=== PATIENT | male | born 1935 | race Caucasian/White ===

== ENCOUNTER 2019-10-23 00:37 | Inpatient (IN) | payer MEDICARE, OTHER ==
[~2019-10-23] VITALS: Ht 163.8 cm; Wt 63.2 kg
[~2019-10-23 00:37] MED LIST: CLOP75TA PO; LEVO750T26 PO; METF500T17 PO; PRED50TA PO; SIMV40TA20 PO; TAMS0.4C2 PO
--- NOTE | 2019-10-23 00:45 | NUR ---
THIS IS A 84Y M BIB EMS FROM [place]. PT HAD WORSENING BACK PAIN TODAY. HX OF CA SCAN TODAY SHOWED METS TO SPINE. PT CONNECTED TO ALL MONITORING, VSS, NADN. PT ABLE TO SPEAK IN FULL SENTENCES. PT STS PAIN IS PRESENT/ UNBEARABLE WHEN ATTEMPTING TO AMB
--- NOTE | 2019-10-23 00:46 | NUR ---
MD AT BEDSIDE TO ASSESS PT
--- NOTE | 2019-10-23 01:41 | NUR ---
RESTING QUIETLY, AWAIT ROOM ASSIGNMENT
--- NOTE | 2019-10-23 01:56 | NUR ---
PT RESTING ON GURNEY WITH WAFFLE MATTRESS IN PLACE, [place].
[2019-10-23 03:21] VITALS: BP 154/74
[2019-10-23] MEDS ORDERED: ACETAMINOPHEN 325 MG TABLET PO PRN (03:30)
[2019-10-23] MEDS ORDERED: hydrALAzine 20 MG/ML, 1ML IVPush PRN (03:30)
[2019-10-23] MEDS ORDERED: ONDANSETRON 2MG/ML, 2ML IVPush PRN (03:30)
[2019-10-23] MEDS ORDERED: POLYETHYLENE GLYCOL 17 GM PACKET PO PRN (03:30)
[2019-10-23] MEDS ORDERED: TEMAZEPAM 15 MG CAPSULE PO ONE (04:00)
[2019-10-23 04:19] LABS: MICROSCOPIC NOT IND
[2019-10-23 04:21] LABS: CULTURE INDICATED? NO
[2019-10-23] MEDS ORDERED: ALBUTEROL SULFATE 2.5 MG/3 ML NPPB PRN (04:30)
[2019-10-23] MEDS ORDERED: OXYcodone IR 5MG TABLET PO PRN (07:30)
[2019-10-23] MEDS ORDERED: MORPHINE SULFATE 4 MG/ML, 1ML IVPush PRN (07:30)
[2019-10-23 08:25] VITALS: BP 127/71
[2019-10-23] MEDS: LIDODERM 5% PATCH TD SCH (09:54)
[2019-10-23 10:12] LABS: BASOPHILS # (AUTO) 0.02 x10^3/uL (0-0.1); BASOPHILS % (AUTO) 1 % (0-1); EOSINOPHILS # (AUTO) 0.22 x10^3/uL (0-0.4); EOSINOPHILS % (AUTO) 6 % (1-7); LYMPHOCYTES # (AUTO) 0.81 x10^3/uL (1-3.4); LYMPHOCYTES % (AUTO) 22 % (22-44); MD NO; MEAN CORPUSCULAR HEMOGLOBIN 30.2 pg (27.5-34.5); MEAN CORPUSCULAR HGB CONC 32.7 g/dL (33.2-36.2); MEAN CORPUSCULAR VOLUME 92.5 fL (81-97); MEAN PLATELET VOLUME 6.6 fL (7.4-10.4); MONOCYTES # (AUTO) 0.38 x10^3/uL (0.2-0.8); MONOCYTES % (AUTO) 10 % (2-9); NEUTROPHILS % (AUTO) 61 % (42-75); PLATELET COUNT 188 x10^3/uL (130-400); RED BLOOD COUNT 3.83 x10^6/uL (4.38-5.82); RED CELL DISTRIBUTION WIDTH 14.7 % (9.4-14.8)
[2019-10-23 10:19] LABS: ANION GAP 4 mmol/L (5-15); CALCIUM 8.4 mg/dL (8.5-10.1); CHLORIDE 103 mmol/L (98-107); CREATININE 0.88 mg/dL (0.7-1.3)
[2019-10-23] MEDS ORDERED: SENNA/DOCUSATE TABLET PO PRN (13:00)
[2019-10-23] MEDS: ACETAMINOPHEN 325 MG TABLET PO SCH ×2 (13:46→21:13)
[2019-10-23] MEDS: OXYcodone IR 5MG TABLET PO SCH ×2 (13:46→19:34)
[2019-10-23] MEDS ORDERED: PRIM50TA34 PO (13:54)
[2019-10-23] MEDS ORDERED: ESCI20TA PO (13:54)
[2019-10-23] MEDS ORDERED: BUPR75TA6 PO (13:54)
[2019-10-23] MEDS ORDERED: PANT40TA5 PO (13:54)
[2019-10-23] MEDS ORDERED: DONE10TA14 PO (13:54)
[2019-10-23] MEDS ORDERED: TIMO5DRO33 EACHEYE (13:59)
[2019-10-23 14:45] VITALS: BP 104/70
[2019-10-23] MEDS: GABAPENTIN 100 MG CAPSULE PO SCH ×2 (17:32→21:12)
[2019-10-23] MEDS: CLOPIDOGREL 75 MG TABLET PO SCH (17:32)
[2019-10-23 20:25] VITALS: BP 124/61
[2019-10-23] MEDS: BUPROPION 75 MG TABLET PO SCH (21:12)
[2019-10-23] MEDS: PRIMIDONE 50 MG TABLET PO SCH (21:13)
[2019-10-23] MEDS: SIMVASTATIN 40 MG TABLET PO SCH (21:13)
[2019-10-24] MEDS: OXYcodone IR 5MG TABLET PO SCH ×4 (03:06→21:24)
[2019-10-24 03:13] VITALS: BP 102/64
[2019-10-24] MEDS: ACETAMINOPHEN 325 MG TABLET PO SCH ×3 (05:48→21:25)
[2019-10-24 07:01] VITALS: BP 94/64
[2019-10-24] MEDS: DONEPEZIL 10 MG TABLET PO SCH (07:48)
[2019-10-24] MEDS: PANTOPRAZOLE 40MG TABLET PO SCH (07:48)
[2019-10-24] MEDS: ESCITALOPRAM 10MG TABLET PO SCH (07:48)
[2019-10-24] MEDS: GABAPENTIN 100 MG CAPSULE PO SCH ×3 (07:48→21:24)
[2019-10-24] MEDS: CLOPIDOGREL 75 MG TABLET PO SCH (07:49)
[2019-10-24] MEDS: LIDODERM 5% PATCH TD SCH ×3 (07:49→12:00)
[2019-10-24] MEDS: BUPROPION 75 MG TABLET PO SCH ×2 (07:49→21:25)
[2019-10-24] MEDS: TIMOLOL OPHTH 0.5%, 5ML EACHEYE SCH (07:59)
[2019-10-24] MEDS ORDERED: TEMPLATE NON-FORMULARY MED. (Timolol Maleate 1 DROP) EACHEYE SCH (09:00)
[2019-10-24] MEDS ORDERED: LIDODERM 5% PATCH TD SCH (11:30)
[2019-10-24 13:42] VITALS: BP 117/64
[2019-10-24 20:03] VITALS: BP 114/61
[2019-10-24] MEDS: PRIMIDONE 50 MG TABLET PO SCH (21:23)
[2019-10-24] MEDS: SIMVASTATIN 40 MG TABLET PO SCH (21:25)
[2019-10-24] MEDS: LIDODERM REMOVE PATCH NOTE XX SCH (23:30)
[2019-10-25] MEDS ORDERED: OMNIPAQUE 350 MG/ML, 100ML BOTTLE ONE (02:23)
[2019-10-25 03:37] VITALS: BP 98/64
[2019-10-25] MEDS: OXYcodone IR 5MG TABLET PO SCH ×4 (03:53→21:29)
[2019-10-25] MEDS: ACETAMINOPHEN 325 MG TABLET PO SCH ×3 (05:30→21:30)
[2019-10-25] MEDS ORDERED: MORPHINE SULFATE 4 MG/ML, 1ML IVPush PRN (07:30)
[2019-10-25 07:53] VITALS: BP 98/68
[2019-10-25] MEDS: ESCITALOPRAM 10MG TABLET PO SCH (09:04)
[2019-10-25] MEDS: GABAPENTIN 100 MG CAPSULE PO SCH ×3 (09:04→21:30)
[2019-10-25] MEDS: BUPROPION 75 MG TABLET PO SCH ×2 (09:05→21:30)
[2019-10-25] MEDS: DONEPEZIL 10 MG TABLET PO SCH (09:05)
[2019-10-25] MEDS: PANTOPRAZOLE 40MG TABLET PO SCH (09:07)
[2019-10-25] MEDS: TIMOLOL OPHTH 0.5%, 5ML EACHEYE SCH (09:16)
[2019-10-25] MEDS ORDERED: FLUMAZENIL 0.1 MG/1 ML, 5ML ONE (09:34)
[2019-10-25] MEDS ORDERED: MIDAZOLAM 1 MG/ML, 5ML ONE (09:34)
[2019-10-25] MEDS ORDERED: FENTANYL PF 100 MCG/2ML ONE ×2 (09:34)
[2019-10-25] MEDS ORDERED: NALOXONE 1 MG/ML, 2ML ONE (09:35)
[2019-10-25] MEDS: LIDODERM 5% PATCH TD SCH ×2 (11:29)
[2019-10-25 12:48] VITALS: BP 122/62
[2019-10-25] MEDS ORDERED: BISACODYL 10 MG SUPP PR PRN (15:30)
[2019-10-25] MEDS ORDERED: SODIUM CHLORIDE 0.9% 1,000 ML IV SCH (15:30)
[2019-10-25 18:27] LABS: HCT (SEDRATE) 38.4 % (39.2-51.8)
[2019-10-25 18:28] LABS: ANION GAP 6 mmol/L (5-15); CALCIUM 8.7 mg/dL (8.5-10.1); CHLORIDE 98 mmol/L (98-107); CREATININE 0.99 mg/dL (0.7-1.3)
[2019-10-25 18:31] LABS: BASOPHILS # (AUTO) 0.02 x10^3/uL (0-0.1); BASOPHILS % (AUTO) 0 % (0-1); EOSINOPHILS # (AUTO) 0.31 x10^3/uL (0-0.4); EOSINOPHILS % (AUTO) 6 % (1-7); LYMPHOCYTES # (AUTO) 0.98 x10^3/uL (1-3.4); LYMPHOCYTES % (AUTO) 20 % (22-44); MD NO; MEAN CORPUSCULAR HEMOGLOBIN 30.1 pg (27.5-34.5); MEAN CORPUSCULAR HGB CONC 32.8 g/dL (33.2-36.2); MEAN CORPUSCULAR VOLUME 91.7 fL (81-97); MEAN PLATELET VOLUME 7.1 fL (7.4-10.4); MONOCYTES # (AUTO) 0.41 x10^3/uL (0.2-0.8); MONOCYTES % (AUTO) 8 % (2-9); NEUTROPHILS # (AUTO) 3.24 x10^3/uL (1.8-6.8); NEUTROPHILS % (AUTO) 65 % (42-75); PLATELET COUNT 196 x10^3/uL (130-400); RED BLOOD COUNT 4.15 x10^6/uL (4.38-5.82); RED CELL DISTRIBUTION WIDTH 15.2 % (9.4-14.8)
[2019-10-25 20:08] VITALS: BP 97/65
[2019-10-25] MEDS: PRIMIDONE 50 MG TABLET PO SCH (21:00)
[2019-10-25] MEDS: SIMVASTATIN 40 MG TABLET PO SCH (21:30)
[2019-10-25] MEDS: LIDODERM REMOVE PATCH NOTE XX SCH (23:30)
[2019-10-26 00:38] VITALS: BP 138/57
[2019-10-26] MEDS: OXYcodone IR 5MG TABLET PO SCH ×4 (05:11→21:18)
[2019-10-26] MEDS: ACETAMINOPHEN 325 MG TABLET PO SCH ×3 (05:11→21:18)
[2019-10-26 07:00] VITALS: BP 159/98
[2019-10-26 07:25] VITALS: BP 140/62
[2019-10-26] MEDS: ESCITALOPRAM 10MG TABLET PO SCH (08:52)
[2019-10-26] MEDS: PANTOPRAZOLE 40MG TABLET PO SCH (08:52)
[2019-10-26] MEDS: GABAPENTIN 100 MG CAPSULE PO SCH ×3 (08:52→21:18)
[2019-10-26] MEDS: DONEPEZIL 10 MG TABLET PO SCH (08:53)
[2019-10-26] MEDS: TIMOLOL OPHTH 0.5%, 5ML EACHEYE SCH (08:53)
[2019-10-26] MEDS: BUPROPION 75 MG TABLET PO SCH ×2 (08:53→21:18)
[2019-10-26 11:25] LABS: OCCULT BLOOD NEGATIVE (NEGATIVE)
[2019-10-26] MEDS: LIDODERM 5% PATCH TD SCH ×2 (11:42)
[2019-10-26 13:30] VITALS: BP 105/37
[2019-10-26 19:06] VITALS: BP 118/58
[2019-10-26] MEDS: MAGNESIUM HYDROXIDE 8%, 30ML UDC PO SCH (21:00)
[2019-10-26] MEDS: PRIMIDONE 50 MG TABLET PO SCH (21:17)
[2019-10-26] MEDS: SIMVASTATIN 40 MG TABLET PO SCH (21:18)
[2019-10-26] MEDS: LIDODERM REMOVE PATCH NOTE XX SCH (23:30)
[2019-10-27 00:24] VITALS: BP 96/50
[2019-10-27] MEDS: OXYcodone IR 5MG TABLET PO SCH ×4 (03:45→21:22)
[2019-10-27] MEDS: ACETAMINOPHEN 325 MG TABLET PO SCH ×3 (05:38→21:22)
[2019-10-27 06:54] VITALS: BP 95/59
[2019-10-27] MEDS: GABAPENTIN 100 MG CAPSULE PO SCH ×3 (08:35→21:16)
[2019-10-27] MEDS: DONEPEZIL 10 MG TABLET PO SCH (08:35)
[2019-10-27] MEDS: ESCITALOPRAM 10MG TABLET PO SCH (08:36)
[2019-10-27] MEDS: PANTOPRAZOLE 40MG TABLET PO SCH (08:36)
[2019-10-27] MEDS: BUPROPION 75 MG TABLET PO SCH ×2 (08:36→21:16)
[2019-10-27] MEDS: TIMOLOL OPHTH 0.5%, 5ML EACHEYE SCH (08:36)
[2019-10-27] MEDS: LIDODERM 5% PATCH TD SCH ×2 (12:00→12:04)
[2019-10-27] MEDS: MAGNESIUM HYDROXIDE 8%, 30ML UDC PO SCH (12:03)
[2019-10-27 12:46] VITALS: BP 93/61
[2019-10-27] MEDS ORDERED: GADOTERATE 7.5 MMOL/15 ML SYR ONE (13:28)
[2019-10-27 20:01] VITALS: BP 107/60
[2019-10-27] MEDS: SIMVASTATIN 40 MG TABLET PO SCH (21:16)
[2019-10-27] MEDS: PRIMIDONE 50 MG TABLET PO SCH (21:22)
[2019-10-27] MEDS: LIDODERM REMOVE PATCH NOTE XX SCH (23:30)
[2019-10-28 01:38] VITALS: BP 98/57
[2019-10-28] MEDS: OXYcodone IR 5MG TABLET PO SCH ×3 (03:58→16:09)
[2019-10-28 05:07] LABS: BASOPHILS # (AUTO) 0.02 x10^3/uL (0-0.1); BASOPHILS % (AUTO) 1 % (0-1); EOSINOPHILS # (AUTO) 0.36 x10^3/uL (0-0.4); EOSINOPHILS % (AUTO) 8 % (1-7); LYMPHOCYTES # (AUTO) 1.09 x10^3/uL (1-3.4); LYMPHOCYTES % (AUTO) 25 % (22-44); MD NO; MEAN CORPUSCULAR HEMOGLOBIN 30.6 pg (27.5-34.5); MEAN CORPUSCULAR HGB CONC 33.1 g/dL (33.2-36.2); MEAN CORPUSCULAR VOLUME 92.5 fL (81-97); MEAN PLATELET VOLUME 6.6 fL (7.4-10.4); MONOCYTES # (AUTO) 0.49 x10^3/uL (0.2-0.8); MONOCYTES % (AUTO) 11 % (2-9); NEUTROPHILS # (AUTO) 2.43 x10^3/uL (1.8-6.8); NEUTROPHILS % (AUTO) 55 % (42-75); PLATELET COUNT 190 x10^3/uL (130-400); RED BLOOD COUNT 3.41 x10^6/uL (4.38-5.82); RED CELL DISTRIBUTION WIDTH 14.7 % (9.4-14.8)
[2019-10-28 05:08] LABS: ANION GAP 2 mmol/L (5-15); CALCIUM 8.5 mg/dL (8.5-10.1); CHLORIDE 101 mmol/L (98-107); CREATININE 1.15 mg/dL (0.7-1.3)
[2019-10-28] MEDS: ACETAMINOPHEN 325 MG TABLET PO SCH ×2 (05:39→13:48)
[2019-10-28 06:54] VITALS: BP 119/64
[2019-10-28] MEDS: PANTOPRAZOLE 40MG TABLET PO SCH (08:31)
[2019-10-28] MEDS: GABAPENTIN 100 MG CAPSULE PO SCH ×2 (08:32→16:11)
[2019-10-28] MEDS: ESCITALOPRAM 10MG TABLET PO SCH (08:32)
[2019-10-28] MEDS: MAGNESIUM HYDROXIDE 8%, 30ML UDC PO SCH (08:32)
[2019-10-28] MEDS: DONEPEZIL 10 MG TABLET PO SCH (08:32)
[2019-10-28] MEDS: BUPROPION 75 MG TABLET PO SCH (08:32)
[2019-10-28] MEDS: TIMOLOL OPHTH 0.5%, 5ML EACHEYE SCH (08:32)
[2019-10-28] MEDS: LIDODERM 5% PATCH TD SCH ×2 (12:00→12:10)
[2019-10-28 12:59] VITALS: BP 122/69
[2019-10-28] MEDS ORDERED: POLY17PO5 PO (17:32)
[2019-10-28] MEDS ORDERED: OXYC5TAB3 PO ×2 (17:32→17:35)
[2019-10-28] MEDS ORDERED: GABA-826 PO (17:32)
[2019-10-28] MEDS ORDERED: LIDO700A20 TD (17:32)
[2019-10-28] MEDS ORDERED: MAGN400O7 PO (17:32)
== END 2019-10-28 18:08 | disposition home or self-care (01) | DRG 543 ==
LOC: ED 03:22 → 4NW 03:36
PROVIDERS: ADMIT Family Medicine; ATTEND Internal Medicine
DX: M80.08XA Age-related osteoporosis with current pathological fracture, vertebra(e), initial encounter for fracture (principal); J96.10 Chronic respiratory failure, unspecified whether with hypoxia or hypercapnia; D64.9 Anemia, unspecified; E11.9 Type 2 diabetes mellitus without complications; E78.5 Hyperlipidemia, unspecified; F03.90 Unspecified dementia, unspecified severity, without behavioral disturbance, psychotic disturbance, mood disturbance, and anxiety; G25.0 Essential tremor; I10 Essential (primary) hypertension; I25.10 Atherosclerotic heart disease of native coronary artery without angina pectoris; J44.9 Chronic obstructive pulmonary disease, unspecified; K21.9 Gastro-esophageal reflux disease without esophagitis; M19.90 Unspecified osteoarthritis, unspecified site; N40.0 Benign prostatic hyperplasia without lower urinary tract symptoms; Z79.02 Long term (current) use of antithrombotics/antiplatelets; Z79.899 Other long term (current) drug therapy; Z82.49 Family history of ischemic heart disease and other diseases of the circulatory system; Z85.46 Personal history of malignant neoplasm of prostate; Z85.51 Personal history of malignant neoplasm of bladder; Z86.73 Personal history of transient ischemic attack (TIA), and cerebral infarction without residual deficits; Z87.891 Personal history of nicotine dependence; Z95.1 Presence of aortocoronary bypass graft; Z96.653 Presence of artificial knee joint, bilateral; Z99.81 Dependence on supplemental oxygen; M48.061 Spinal stenosis, lumbar region without neurogenic claudication
CPT/HCPCS: 36415; 72157; 74177; 78306; 80048; 81003; 82105; 82272; 83036; 85025; 85651; 86140; 86301; 87040; 93005; 99285; G0378; J2250; J3010; Q9967; A9503; A9575; J2310; J7030